=== PATIENT | female | born 1955 | race African-American/Black ===

== ENCOUNTER 2017-12-06 00:47 | Emergency (ER) | payer SELFPAY | END 2017-12-06 02:44 | disposition left against medical advice (07) | LOC: FTE 00:47 | DX: Z53.21 Procedure and treatment not carried out due to patient leaving prior to being seen by health care provider (principal) ==

== ENCOUNTER 2018-10-22 00:34 | Emergency (ER) | payer OTHER | END 2018-10-22 06:24 | disposition short-term general hospital (02) | LOC: E/R 00:34 | DX: T18.108A Unspecified foreign body in esophagus causing other injury, initial encounter (principal); F17.210 Nicotine dependence, cigarettes, uncomplicated; X58.XXXA Exposure to other specified factors, initial encounter; Y92.9 Unspecified place or not applicable | CPT/HCPCS: 70490; 83605; 99285-25 ==